=== PATIENT | female | born 1975 | race American Indian/Alaskan Native ===

== ENCOUNTER 2017-01-04 07:43 | Day surgery (SDC) | payer BC ==
--- NOTE | 2017-01-02 11:30 | Anesthesia Consultation ---
Anesthesia Consult and Med Hx Date of service: 01/02/17 (Scheduled for ESWL on 01/04/[address] Ford) - Airway Anesthetic Teeth Evaluation: Poor (Broken tooth #3, broken loose tooth #13) ROM Head & Neck: Adequate Mental/Hyoid Distance: Adequate Mallampati Class: Class III Intubation Access Assessment: Possibly Difficult - Pulmonary Exam CTA: Yes - Cardiac Exam Cardiac Exam: RRR - Pre-Operative Health Status ASA Pre-Surgery Classification: ASA2 Proposed Anesthetic Plan: General - Pre-Anesthesia Comment Pre-Anesthesia Comments: h/o PONV. s/p ESWL on 07/2015, LMA #5. s/p dental infection, ? abscess- on day 2 of Clindamycin. - Pulmonary Hx Smoking: Yes (2-6 CIGARETTES WEEKLY) Hx Asthma: No Hx Sleep Apnea: No - Cardiovascular System Hx Hypertension: Yes (Denies Chest pain) Hx Coronary Artery Disease: No - Central Nervous System Hx Seizures: No (Pt declines) CVA: No Hx Psychiatric Problems: Yes (Depression) - Gastrointestinal Hx Gastroesophageal Reflux Disease: No - Endocrine Hx Renal Disease: No Hx Non-Insulin Dependent Diabetes: Yes (On Metformin) Hx Thyroid Disease: No - Hematic Hx Anemia: Yes (In past, "RESOLVED") Hx Sickle Cell Disease: No - Other Systems Hx Alcohol Use: No Hx Substance Use: No Hx Cancer: No Hx Obesity: Yes (BMI=40)
[~2017-01-04 07:43] MED LIST: ANCEF/STERILE WATER 2 GM/20 ML IV NR; NACL 0.9% 1000 ML 1,000 ML IV SCH; PEPCID PO NR; TRANSDERM-SCOP TD NR; VERSED IV NR; ZOFRAN IV NR
[2017-01-04] MEDS ORDERED: ZOFRAN IV PRN (08:33)
--- NOTE | 2017-01-04 08:34 | Anesthesia Day of Surgery ---
Anesthesia Day of Surgery - Day of Surgery Patient Examined: Yes Patient H&P Reviewed: Yes Patient is NPO: Yes
[2017-01-04] MEDS ORDERED: NEO SYNEPHRINE/NS Syringe(OR USE) IV ONE (08:46)
[2017-01-04] MEDS ORDERED: XYLOCAINE MPF 2% ONE (08:57)
[2017-01-04] MEDS ORDERED: DIPRIVAN 10 MG/ML IV ONE (08:57)
[2017-01-04] MEDS ORDERED: SUBLIMAZE ONE (08:57)
[2017-01-04] MEDS ORDERED: ZOFRAN ONE (08:57)
[2017-01-04] MEDS ORDERED: DECADRON ONE (08:57)
[2017-01-04] MEDS ORDERED: ROBINUL ONE (08:58)
[2017-01-04] MEDS ORDERED: LACTATED RINGERS 1,000 ML IV SCH (09:00)
--- NOTE | 2017-01-04 09:23 | Post Operative Note ---
Date of procedure: 01/04/17 Pre-op diagnosis: renal stone Post-op diagnosis: same Findings: l stone Procedure: L eswl Anesthesia: SARAH Surgeon: KARYN MITCHELL Estimated blood loss: none Pathology: none Condition: stable Disposition: PACU
--- NOTE | 2017-01-04 09:24 | Discharge Summary ---
Short Stay Discharge Plan Activity: other (no straining ) Weight Bearing Status: Full Weight Bearing Diet: low fat, low cholesterol, low salt, diabetic Special Instructions: other (inc fluids ) Follow up with: MAMIE OLMSTEAD MD [Primary Care Provider] - 7 Days KARYN MITCHELL MD [Staff Physician] - 14 Days
--- NOTE | 2017-01-04 09:32 | Operative Report ---
PREOPERATIVE DIAGNOSES: Left flank pain and left renal stone. POSTOPERATIVE DIAGNOSES: Left flank pain and left renal stone. PROCEDURE: Left in situ lithotripsy. SURGEON: Av Ford MD ANESTHESIA: General. FINDINGS: This patient is a woman with left renal stone. All the risks and complications were discussed. It is a 9 mm stone well seen on x-ray. DESCRIPTION OF PROCEDURE: The patient was brought to the operating room and placed on the operating table. Following induction of anesthesia, placed over the F2 focal point without difficulty. Shocks were begun at 1 kV and increased to maximum of 6 kV. Renal pause was carried out. The patient tolerated the procedure well. There was appeared to be change in the density of the stone. She still has stone burden there and they need a staged procedure. The patient tolerated the procedure well and brought to recovery in stable condition. JOB# [id number] PRASANNA/MARCELO
--- NOTE | 2017-01-04 09:48 | Post Anesthesia Evaluation ---
- Post Anesthesia Evaluation Patient Participated: Yes Airway Patent: Yes Stable Respiratory Function: Yes Nausea/Vomiting: No Temp > 96.8F: Yes Pain Manageable: Yes Adequeate Hydration: Yes Anesthesia Complications: No Other Comments: Broken molar seen and retrieved on removal of LMA. Insertion was atraumatic. Patient has poor dentition.
[2017-01-04] MEDS: DILAUDID IV PRN ×2 (09:55→10:06)
[2017-01-04] MEDS ORDERED: PERCOCET 5/325 PO ONE (11:05)
[2017-01-04 11:30] VITALS: BP 117/75
== END 2017-01-04 11:40 | disposition home or self-care (01) ==
LOC: OR 07:43
PROVIDERS: ATTEND Urology
DX: N20.0 Calculus of kidney (principal); I10 Essential (primary) hypertension; E11.9 Type 2 diabetes mellitus without complications; F17.210 Nicotine dependence, cigarettes, uncomplicated; F32.9 Major depressive disorder, single episode, unspecified; E66.9 Obesity, unspecified; Z68.41 Body mass index [BMI] 40.0-44.9, adult; Z90.710 Acquired absence of both cervix and uterus; Z79.84 Long term (current) use of oral hypoglycemic drugs; Z83.3 Family history of diabetes mellitus; Z82.49 Family history of ischemic heart disease and other diseases of the circulatory system; Z80.42 Family history of malignant neoplasm of prostate; Z80.0 Family history of malignant neoplasm of digestive organs; Z80.8 Family history of malignant neoplasm of other organs or systems
CPT/HCPCS: 50590; 82962; J0690; J1100; J1170; J2250; J2370; J2405; J2704; J3010; J7030

== ENCOUNTER 2017-09-29 14:58 | Emergency (ER) | payer BC ==
[2017-09-29 15:18] VITALS: BP 124/59
[2017-09-29] MEDS ORDERED: BOOSTRIX IM ONE (17:18)
--- NOTE | 2017-09-29 17:25 | Emergency Department Report ---
ED Laceration HPI - HPI Chief Complaint: Wound/Laceration Stated Complaint: LACERATION LEFT INDEX FINGER Time Seen by Provider: 09/29/17 17:17 Occurred When: Today Location: Upper Extremity (base of 2nd finger R hand) Severity: mild Tetanus Status: Not up to Date Laceration Symptoms: Yes Pain, No Foreign Body Sensation, No Numbness, No Weakness Other History: Caught finger on piece of metal. ED Review of Systems ROS: Stated complaint: LACERATION LEFT INDEX FINGER Other details as noted in HPI Comment: All other systems reviewed and negative Constitutional: denies: chills, fever Eyes: denies: eye pain, eye discharge, vision change ENT: denies: ear pain, throat pain Respiratory: denies: cough, shortness of breath, wheezing Cardiovascular: denies: chest pain, palpitations Endocrine: no symptoms reported Gastrointestinal: denies: abdominal pain, nausea, diarrhea Genitourinary: denies: urgency, dysuria, discharge Musculoskeletal: denies: back pain, joint swelling, arthralgia Skin: denies: rash, lesions Neurological: denies: headache, weakness, paresthesias Psychiatric: denies: anxiety, depression Hematological/Lymphatic: denies: easy bleeding, easy bruising ED Past Medical Hx - Past Medical History Hx Hypertension: Yes Hx Diabetes: Yes (METFORMIN) Hx Renal Disease: No Hx Sickle Cell Disease: No Hx Seizures: No (Pt declines) Hx Kidney Stones: Yes Hx Asthma: No Hx HIV: No Additional medical history: high cholesterol - Surgical History Additional Surgical History: partial hysterectomykidney stones - Social History Smoking Status: Never Smoker Substance Use Type: None - Medications Home Medications: Home Medications Medication Instructions Recorded Confirmed Last Taken Type Lisinopril [Zestril TAB] 5 mg PO QDAY 09/22/14 01/04/17 01/04/17 History Pravastatin Sodium [Pravastatin] 10 mg PO QHS 09/22/14 01/01/17 09/21/14 History metFORMIN [Glucophage] 750 mg PO BID 09/22/14 01/04/17 01/03/17 History Sennosides/Docusate Sodium 1 each PO DAILY #10 tablet 07/05/15 01/04/17 Rx [Senna-Docusate Sodium Tablet] oxyCODONE [Roxicodone TAB] 5 mg PO Q4H PRN #30 tablet 07/26/15 01/04/17 Rx Pedi Multivit 22/Vit D3/Vit K 1 each PO DAILY 08/02/15 01/01/17 10/16/16 History [Multivitamins Chewable Tablet] Citalopram [celeXA] 20 mg PO QDAY 01/01/17 01/04/17 01/03/17 History Clindamycin [Clindamycin CAP] 150 mg PO BID 01/01/17 01/04/17 01/03/17 History Triamter/Hctz 37.5-25 mg 1 tab PO QDAY 01/01/17 01/04/17 01/03/17 History [Maxzide-25] Cephalexin [Keflex] 500 mg PO Q12HR #14 cap 09/29/17 Unknown Rx Laceration Physical Exam - Exam General: Vital signs noted. No distress. Alert and acting appropriately. Wound Length (cm): 1 Laceration Location: Upper Extremity (small superficial lac to base of R 2nd finger, palmar aspect) Laceration Exam: Yes Normal Distal CMS, No Foreign Body, No Exposed Tendon, Vessel, or Nerve (CMS, tendons intact), No Tendon Injury ED Course Vital Signs 09/29/17 15:15 Temperature 98 F Pulse Rate 71 Respiratory 16 Rate Blood Pressure 124/59 O2 Sat by Pulse 98 Oximetry - Reevaluation(s) Reevaluation #1: 09/29/17 17:23 Pt is in NAD and stable for d/c. - Laceration /Wound Repair Left Palm Hand Wound Location: upper extremity Wound Length (cm): 1 Wound's Depth, Shape: superficial Wound Explored: clean Irrigated w/ Saline (ccs): 100 Wound Repaired With: Dermabond Sterile Dressing Applied?: Yes Progress: Tolerated well. ED Medical Decision Making - Medical Decision Making Recommended placement of 1-2 sutures however patient refused. Though not the preferred treatment, patient wanted small lac to be glued. As it is superficial , glue applied and area immobilized. Follow with PCP. Tetanus updated. - Differential Diagnosis laceration Critical care attestation.: If time is entered above; I have spent that time in minutes in the direct care of this critically ill patient, excluding procedure time. ED Disposition Clinical Impression: Laceration of hand Qualifiers: Encounter type: initial encounter Foreign body presence: without foreign body Laterality: left Qualified Code(s): S61.412A - Laceration without foreign body of left hand, initial encounter Disposition: DC- TO HOME OR SELFCARE Is pt being admited?: No Condition: Good Instructions: Laceration (ED), Skin Adhesive Care (ED) Prescriptions: Cephalexin [Keflex] 500 mg PO Q12HR #14 cap Referrals: PRIMARY CARE,MD [Primary Care Provider] - 3-5 Days Time of Disposition: 17:24
== END 2017-09-29 17:45 | disposition home or self-care (01) ==
LOC: ED 14:58
DX: S61.211A Laceration without foreign body of left index finger without damage to nail, initial encounter (principal); I10 Essential (primary) hypertension; E11.9 Type 2 diabetes mellitus without complications; E78.00 Pure hypercholesterolemia, unspecified; W23.0XXA Caught, crushed, jammed, or pinched between moving objects, initial encounter; Y93.89 Activity, other specified; Y92.89 Other specified places as the place of occurrence of the external cause; Y99.8 Other external cause status
CPT/HCPCS: 90471; 90715; 99282

== ENCOUNTER 2019-07-15 06:31 | Day surgery (SDC) | payer BC, MEDICAID ==
[2019-07-15] MEDS ORDERED: NACL 0.9% 500 ML 500 ML ONE (06:42)
[2019-07-15] MEDS ORDERED: HALFPRIN EC PO ONE (06:55)
[2019-07-15] MEDS ORDERED: NACL 0.9% 500 ML 500 ML IV SCH (07:00)
[2019-07-15 07:26] LABS: Basophils # (Auto) 0.1 K/mm3 (0.0-0.1); Basophils % (Auto) 0.7 % (0.0-1.8); Eosinophils # (Auto) 0.2 K/mm3 (0.0-0.4); Eosinophils % (Auto) 2.1 % (0.0-4.3); Hematocrit 35.3 % (30.3-42.9); Hemoglobin 11.7 gm/dl (10.1-14.3); Lymphocytes # (Auto) 2.9 K/mm3 (1.2-5.4); Lymphocytes % (Auto) 29.2 % (13.4-35.0); Mean Corpuscular HGB Conc 33 % (30-34); Mean Corpuscular Volume 82 fl (79-97); Monocytes # (Auto) 0.6 K/mm3 (0.0-0.8); Monocytes % (Auto) 6.4 % (0.0-7.3); Platelet Count 290 K/mm3 (140-440); Red Cell Distribution Width 15.4 % (13.2-15.2)
[2019-07-15 07:38] LABS: BUN/Creatinine Ratio 14; Blood Urea Nitrogen 10 mg/dL (7-17); Calcium 8.6 mg/dL (8.4-10.2); Hemolysis Index 14
[2019-07-15 07:44] LABS: INR 1.03 (0.87-1.13)
[2019-07-15] MEDS ORDERED: ECOTRIN PO ONE (08:00)
[2019-07-15] MEDS ORDERED: CALAN ONE (08:58)
[2019-07-15] MEDS ORDERED: NITROGLYCERIN SYRINGE 3 ML ONE (08:58)
[2019-07-15] MEDS ORDERED: HEPARIN 10,000 UNITS/10 ML ONE (08:58)
[2019-07-15] MEDS ORDERED: HEPARIN/NS 5000 UNIT/500ML(CATH LAB) 1,000 ML IR ONE (08:58)
[2019-07-15] MEDS ORDERED: XYLOCAINE 2% INFILTRATI ONE (08:58)
[2019-07-15] MEDS ORDERED: VERSED ONE (08:58)
[2019-07-15] MEDS ORDERED: SUBLIMAZE ONE (08:59)
--- NOTE | 2019-07-15 10:22 | Cardiac Catherization Report ---
CARDIAC CATHETERIZATION REPORT REASON FOR PROCEDURE: Chest pain and abnormal stress test. PROCEDURES: 1. Left heart catheterization. 2. Selective left and right coronary angiography. 3. Left ventricle angiography. 4. Sedation time, start 0954, end 1007. The patient was prepped and draped in a sterile fashion after informed consent. The right radial cath site was prepped and draped after a negative Christiano's test. The right radial artery was entered using Seldinger technique followed by placement of a 6-Icelandic hydrophilic sheath. Routine radial cocktail was administered via the sheath. The left coronary angiography was performed using a #3.5 left Tai catheter. A #4 right Tai was used for right coronary angiography. The pigtail catheter was used for left ventricular angiography. Catheters were removed, sheath removed, and hemostasis achieved using manual compression. The patient was returned to the postprocedure unit in stable condition. There were no complications. FINDINGS: HEMODYNAMICS: Left ventricular end-diastolic pressure was 24, following coronary angiography. Ascending aortic pressure 140/80. There was no significant pressure gradient on pullback across the aortic valve. CORONARY ANGIOGRAPHY: The left main coronary artery was angiographically normal. The left anterior descending artery and its diagonal branches were angiographically normal. The circumflex artery was a large dominant vessel, similarly angiographically normal. The right coronary artery was small, nondominant, and also free of significant disease. Left ventricular systolic function was at the lower limits of normal, ejection fraction 50-55%, following an extrasystolic beat. CONCLUSION: 1. Angiographically normal coronary arteries. 2. Left circumflex dominant system. 3. Well preserved left ventricular systolic function, ejection fraction 50-55%. RECOMMENDATION: Risk factor modification and medical therapy. JOB# [id number] CA/NTS
[2019-07-15] MEDS ORDERED: NACL 0.9% 1000 ML 1,000 ML IV SCH (13:00)
--- NOTE | 2019-07-15 13:05 | Discharge Summary ---
Short Stay Discharge Plan Activity: advance as tolerated Weight Bearing Status: Full Weight Bearing Diet: low fat, low cholesterol, low salt Wound: keep clean and dry Special Instructions: no heavy lifting (3 days), hold Metformin (48 hours only) Follow up with: CHRIS CORTEZ MD [Primary Care Provider] - 7 Days TOM ROBINS MD [Staff Physician] - 7 Days Forms: [employer] PCI D/C Instructions
[2019-07-15 15:44] VITALS: BP 139/92
== END 2019-07-15 14:40 | disposition home or self-care (01) ==
LOC: CATHLABREC 06:31
PROVIDERS: ATTEND Internal Medicine Cardiovascular Disease
DX: R07.89 Other chest pain (principal); R94.39 Abnormal result of other cardiovascular function study; I10 Essential (primary) hypertension; E13.9 Other specified diabetes mellitus without complications; E66.9 Obesity, unspecified; F32.9 Major depressive disorder, single episode, unspecified; Z79.899 Other long term (current) drug therapy; Z87.891 Personal history of nicotine dependence; Z98.890 Other specified postprocedural states; Z87.442 Personal history of urinary calculi; Z90.49 Acquired absence of other specified parts of digestive tract; Z68.42 Body mass index [BMI] 45.0-49.9, adult; Z90.710 Acquired absence of both cervix and uterus; Z87.440 Personal history of urinary (tract) infections; Z79.84 Long term (current) use of oral hypoglycemic drugs
CPT/HCPCS: 36415; 80048; 85025; 85610; 85730; 93005; 93010; 93458; 99156; C1894; J1644; J2250; J3010; J7040; Q9967

== ENCOUNTER 2019-07-20 00:37 | Emergency (ER) | payer MEDICAID ==
[2019-07-20 00:50] VITALS: BP 146/77
[2019-07-20] MEDS ORDERED: IBUPROFEN PO ONE (02:19)
[2019-07-20] MEDS ORDERED: BACTRIM DS PO ONE (02:19)
[2019-07-20] MEDS ORDERED: NORCO 5/325 PO ONE (02:19)
[2019-07-20] MEDS ORDERED: ZOFRAN ODT PO ONE (02:19)
[2019-07-20] MEDS ORDERED: XYLOCAINE 1% MPF 5 mL INFILTRATI ONE (02:19)
--- NOTE | 2019-07-20 03:37 | Emergency Department Report ---
ED Extremity Problem HPI - General Chief complaint: Extremity Injury, Upper Stated complaint: INFECTION ON PRONTER FINGER Source: patient Mode of arrival: Ambulatory Limitations: No Limitations - History of Present Illness Initial comments: Patient is a 44-year-old -[place] female with a history of hypertension and ltw-grhfysp-xjnjewfoj diabetes presents to the ED with complaint of acute onset persistent painful swollen erythematous fluctuant left index finger rash after she moved a cuticle from left index fingernail one week ago. Patient states that in the last 2 days the pain has been persistent and worse such that she is unable to perform any range of motion with the left index finger. Patient denies fever, chills, nausea, vomiting, numbness and tingling of her left arm or left index finger, traumatic injury or insect bite. MD Complaint: extremity pain (left index finger pain and swelling), extremity swelling (left index finger), joint swelling (left index finger) -: Sudden, week(s) (1) Location: left, upper extremity (index finger ) History of Same: No -: No fever, No associated dyspnea Severity scale (0 -10): 7 Quality: aching, sharp, constant Consistency: constant Worsens with: weight bearing, exertion, palpation Associated Symptoms: denies other symptoms - Related Data Home Medications Medication Instructions Recorded Confirmed Last Taken Lisinopril [Zestril TAB] 20 mg PO QDAY 09/22/14 07/15/19 07/13/19 20mg Lasix TAB 20 mg PO DAILY 07/15/19 07/15/19 07/13/19 20mg Previous Rx's Medication Instructions Recorded Last Taken Type Acetaminophen/Codeine [Tylenol 1 tab PO Q6H PRN #12 tab 07/20/19 Unknown Rx /Codeine # 3 tab] Ibuprofen [Motrin] 800 mg PO Q8HR PRN #24 tablet 07/20/19 Unknown Rx Sulfamethoxazole/Trimethoprim 1 each PO Q12H #20 tablet 07/20/19 Unknown Rx [Bactrim DS TAB] Allergies Allergy/AdvReac Type Severity Reaction Status Date / Time No Known Allergies Allergy Verified 09/29/17 15:15 ED Review of Systems ROS: Stated complaint: INFECTION ON PRONTER FINGER Other details as noted in HPI Constitutional: denies: chills, fever Eyes: denies: eye pain, eye discharge, vision change ENT: denies: ear pain, throat pain Respiratory: denies: cough, shortness of breath, wheezing Cardiovascular: denies: chest pain, palpitations Endocrine: no symptoms reported Gastrointestinal: denies: abdominal pain, nausea, diarrhea Genitourinary: denies: urgency, dysuria, discharge Musculoskeletal: joint swelling (left index finger), arthralgia (left index finger). denies: back pain Skin: rash (erythematous maculopapular painful rash on left index finger), change in color. denies: lesions Neurological: denies: headache, weakness, paresthesias Psychiatric: denies: anxiety, depression Hematological/Lymphatic: denies: easy bleeding, easy bruising ED Past Medical Hx - Past Medical History Previous Medical History?: Yes Hx Hypertension: Yes Hx Diabetes: Yes Hx Renal Disease: No Hx Sickle Cell Disease: No Hx Seizures: No (Pt declines) Hx Kidney Stones: Yes (lithrotripsy) Hx Asthma: No Hx HIV: No Additional medical history: high cholesterol, Cardiac Cath 2018 - Surgical History Hx Cholecystectomy: Yes Additional Surgical History: partial hysterectomykidney stones - Social History Smoking Status: Never Smoker - Medications Home Medications: Home Medications Medication Instructions Recorded Confirmed Last Taken Type Lisinopril [Zestril TAB] 20 mg PO QDAY 09/22/14 07/15/19 07/13/19 History 20mg Lasix TAB 20 mg PO DAILY 07/15/19 07/15/19 07/13/19 History 20mg Acetaminophen/Codeine [Tylenol 1 tab PO Q6H PRN #12 tab 07/20/19 Unknown Rx /Codeine # 3 tab] Ibuprofen [Motrin] 800 mg PO Q8HR PRN #24 tablet 07/20/19 Unknown Rx Sulfamethoxazole/Trimethoprim 1 each PO Q12H #20 tablet 07/20/19 Unknown Rx [Bactrim DS TAB] ED Physical Exam - General Limitations: No Limitations General appearance: alert, in no apparent distress - Head Head exam: Present: atraumatic, normocephalic, normal inspection - Eye Eye exam: Present: normal appearance, PERRL, EOMI Pupils: Present: normal accommodation - ENT ENT exam: Present: normal exam, normal orophraynx, mucous membranes moist, TM's normal bilaterally, normal external ear exam - Neck Neck exam: Present: normal inspection, full ROM. Absent: tenderness - Respiratory Respiratory exam: Present: normal lung sounds bilaterally. Absent: respiratory distress, wheezes, stridor, chest wall tenderness, accessory muscle use, prolonged expiratory - Cardiovascular Cardiovascular Exam: Present: regular rate, normal rhythm, normal heart sounds. Absent: systolic murmur, diastolic murmur, rubs, gallop - GI/Abdominal GI/Abdominal exam: Present: soft, normal bowel sounds. Absent: tenderness, guarding, rebound, hyperactive bowel sounds, hypoactive bowel sounds, organomegaly - Rectal Rectal exam: Present: deferred - Extremities Exam Extremities exam: Present: normal inspection, tenderness (palpable left index finger tenderness due to swollen erythematous maculopapular fluctuant rash on distal left index finger), normal capillary refill, joint swelling (left index finger). Absent: calf tenderness - Back Exam Back exam: Present: normal inspection, full ROM. Absent: tenderness, CVA tenderness (R), CVA tenderness (L), muscle spasm, paraspinal tenderness - Neurological Exam Neurological exam: Present: alert, oriented X3, CN II-XII intact, normal gait, reflexes normal - Psychiatric Psychiatric exam: Present: normal affect, normal mood - Skin Skin exam: Present: warm, dry, intact, normal color, rash (swollen erythematous maculopapular tender fluctuant rash on distal left index finger), erythema ED Course Vital Signs 07/20/19 07/20/19 07/20/19 00:46 02:30 02:32 Temperature 98.2 F Pulse Rate 79 Respiratory 18 16 16 Rate Blood Pressure 146/77 O2 Sat by Pulse 98 Oximetry - Reevaluation(s) Reevaluation #1: 07/20/19 04:06 This is a 44-year-old [place] female who presented to the ED with distal left index finger swollen and erythematous macular rash with fluctuance. In the ED, patient is alert and oriented 3 and is not in distress. Patient was treated for pain and the left index finger rash was cleaned thoroughly and local anesthetic applied to anesthetize the left index finger prior to the I&D procedure. Patient tolerated the procedure well and the wound was dressed appropriately and patient discharged home on antibiotics and pain medications. Patient is advised to return to the ED immediately if symptoms get worse, otherwise with her primary care physician in 7-10 days for reevaluation. - I & D Left Distal Finger Type of Procedure: Simple Site: Distal left index finger Blade Size: 11 I & D Procedure: betadine prep, sterile drapes applied, sterile dressing applied, gauze wick placed Progress: Patient tolerated the procedure well. The wound was dressed appropriately and the patient discharged home on pain medications and oral antibiotics. ED Medical Decision Making - Medical Decision Making This is a 44-year-old [place] female who presented to the ED with distal left index finger swollen and erythematous macular rash with fluctuance. In the ED, patient is alert and oriented 3 and is not in distress. Patient was treated for pain and the left index finger rash was cleaned thoroughly and local anesthetic applied to anesthetize the left index finger prior to the I&D procedure. Patient tolerated the procedure well and the wound was dressed appropriately and patient discharged home on antibiotics and pain medications. Patient is advised to return to the ED immediately if symptoms get worse, otherwise with her primary care physician in 7-10 days for reevaluation. - Differential Diagnosis cellulitis of finger; paronychia of left index finger; folliculitis Critical care attestation.: If time is entered above; I have spent that time in minutes in the direct care of this critically ill patient, excluding procedure time. ED Disposition Clinical Impression: Cellulitis of left index finger, Paronychia of left index finger Disposition: DC- TO HOME OR SELFCARE Is pt being admited?: No Does the pt Need Aspirin: No Condition: Stable Instructions: Paronychia (ED), Cellulitis (ED) Additional Instructions: Take medications Coumadin fluids and follow up with your primary care physician in 7-10 days for reevaluation. Remove the dressing from the wound in 2 days, and wash with soap and water, pad to dry and dress it with gauze or with a Band- Aid. Return to the ED immediately if symptoms get worse Prescriptions: Sulfamethoxazole/Trimethoprim [Bactrim DS TAB] 1 each PO Q12H #20 tablet Ibuprofen [Motrin] 800 mg PO Q8HR PRN #24 tablet PRN Reason: Pain , Severe (7-10) Acetaminophen/Codeine [Tylenol /Codeine # 3 tab] 1 tab PO Q6H PRN #12 tab PRN Reason: Pain , Severe (7-10) Referrals: PRIMARY CARE,MD [Primary Care Provider] - 3-5 Days Forms: Work/School Release Form(ED) Time of Disposition: 03:42 Print Language: FRENCH
== END 2019-07-20 03:50 | disposition home or self-care (01) ==
LOC: ED 00:37
DX: L03.012 Cellulitis of left finger (principal); I10 Essential (primary) hypertension; E11.9 Type 2 diabetes mellitus without complications; E78.00 Pure hypercholesterolemia, unspecified; Z90.710 Acquired absence of both cervix and uterus; Z79.899 Other long term (current) drug therapy
CPT/HCPCS: 99282; Q0162

== ENCOUNTER 2019-07-23 21:49 | Emergency (ER) | payer MEDICAID ==
[2019-07-23 22:24] VITALS: BP 131/85
[2019-07-24] MEDS ORDERED: PERCOCET 5/325 PO ONE (00:31)
[2019-07-24] MEDS ORDERED: ZOFRAN ODT PO ONE (00:31)
--- NOTE | 2019-07-24 00:38 | Emergency Department Report ---
- General Chief Complaint: Extremity Injury, Upper Stated Complaint: PACKING IN FINGER CAUSING PAIN AND BLEEDING Time Seen by Provider: 07/23/19 22:22 Source: patient Mode of arrival: Ambulatory Limitations: No Limitations - History of Present Illness Initial Comments: Patient is a 44-year-old -[place] female with a history of xzd-jwjhiun-fzbedoqot diabetes and hypertension who presents to the ED with worsening distal left index finger paronychia wound that was incised and drained 2 days ago. Patient states that she was trying to remove the packing that was placed in the wound when she could not longer bear the pain. Patient denies nausea, vomiting, numbness and tingling of the left index finger or left hand. Patient stated that she continue to take the previously prescribed antibiotics and pain medications but states that the last time she took pain medicine was over 12 hours ago. Patient denies dizziness, fever, chills, headache, cough, chest pain or shortness of breath. -: Sudden, days(s) (2) Location: other (left index finger) Extremity Location: Left: Hand (left index finger paronychion wound) Place: home Patient Tetanus UTD: Yes Associated Symptoms: pain. denies: loss of feeling/numbness, suspect foreign body present, unable to move injured part, weakness followed by dizziness, nausea/vomiting, fever - Related Data Home Medications Medication Instructions Recorded Confirmed Last Taken Lisinopril [Zestril TAB] 20 mg PO QDAY 09/22/14 07/15/19 07/13/19 20mg Lasix TAB 20 mg PO DAILY 07/15/19 07/15/19 07/13/19 20mg Previous Rx's Medication Instructions Recorded Last Taken Type Acetaminophen/Codeine [Tylenol 1 tab PO Q6H PRN #12 tab 07/20/19 Unknown Rx /Codeine # 3 tab] Ibuprofen [Motrin] 800 mg PO Q8HR PRN #24 tablet 07/20/19 Unknown Rx Sulfamethoxazole/Trimethoprim 1 each PO Q12H #20 tablet 07/20/19 Unknown Rx [Bactrim DS TAB] Allergies Allergy/AdvReac Type Severity Reaction Status Date / Time No Known Allergies Allergy Verified 09/29/17 15:15 ED Review of Systems ROS: Stated complaint: PACKING IN FINGER CAUSING PAIN AND BLEEDING Other details as noted in HPI Constitutional: denies: chills, fever Eyes: denies: eye pain, eye discharge, vision change ENT: denies: ear pain, throat pain Respiratory: denies: cough, shortness of breath, wheezing Cardiovascular: denies: chest pain, palpitations Endocrine: no symptoms reported Gastrointestinal: denies: abdominal pain, nausea, diarrhea Genitourinary: denies: urgency, dysuria, discharge Musculoskeletal: arthralgia (distal left index finger wound). denies: back pain, joint swelling Skin: other (Open distal left index finger wound). denies: rash, lesions Neurological: denies: headache, weakness, paresthesias Psychiatric: denies: anxiety, depression Hematological/Lymphatic: denies: easy bleeding, easy bruising ED Past Medical Hx - Past Medical History Previous Medical History?: Yes Hx Hypertension: Yes Hx Diabetes: Yes Hx Renal Disease: No Hx Sickle Cell Disease: No Hx Seizures: (Pt declines) Hx Kidney Stones: Yes (lithrotripsy) Hx Asthma: No Hx HIV: No Additional medical history: high cholesterol, Cardiac Cath 2018 - Surgical History Past Surgical History?: Yes Hx Cholecystectomy: Yes Additional Surgical History: partial hysterectomykidney stones - Social History Smoking Status: Never Smoker Substance Use Type: None - Medications Home Medications: Home Medications Medication Instructions Recorded Confirmed Last Taken Type Lisinopril [Zestril TAB] 20 mg PO QDAY 09/22/14 07/15/19 07/13/19 History 20mg Lasix TAB 20 mg PO DAILY 07/15/19 07/15/19 07/13/19 History 20mg Acetaminophen/Codeine [Tylenol 1 tab PO Q6H PRN #12 tab 07/20/19 Unknown Rx /Codeine # 3 tab] Ibuprofen [Motrin] 800 mg PO Q8HR PRN #24 tablet 07/20/19 Unknown Rx Sulfamethoxazole/Trimethoprim 1 each PO Q12H #20 tablet 07/20/19 Unknown Rx [Bactrim DS TAB] ED Physical Exam - General Limitations: No Limitations General appearance: alert, in no apparent distress - Head Head exam: Present: atraumatic, normocephalic, normal inspection - Eye Eye exam: Present: normal appearance, PERRL, EOMI Pupils: Present: normal accommodation - ENT ENT exam: Present: normal exam, normal orophraynx, mucous membranes moist, TM's normal bilaterally, normal external ear exam - Neck Neck exam: Present: normal inspection, full ROM - Respiratory Respiratory exam: Present: normal lung sounds bilaterally. Absent: respiratory distress, wheezes, rhonchi, accessory muscle use - Cardiovascular Cardiovascular Exam: Present: regular rate, normal rhythm, normal heart sounds. Absent: systolic murmur, diastolic murmur, rubs, gallop - GI/Abdominal GI/Abdominal exam: Present: soft, normal bowel sounds. Absent: tenderness, guarding, rebound, mass - Extremities Exam Extremities exam: Present: normal inspection, full ROM, tenderness (palpable distal left index finger tenderness due to an open paronychion wound), normal capillary refill - Back Exam Back exam: Present: normal inspection, full ROM. Absent: muscle spasm - Neurological Exam Neurological exam: Present: alert, oriented X3 - Psychiatric Psychiatric exam: Present: normal affect, normal mood - Skin Skin exam: Present: warm, dry, intact, normal color, other (Open severely tender paronychion wound on distal left index finger). Absent: rash ED Course Vital Signs 07/23/19 22:22 Temperature 98.1 F Pulse Rate 75 Respiratory 18 Rate Blood Pressure 131/85 O2 Sat by Pulse 98 Oximetry - Reevaluation(s) Reevaluation #1: 07/24/19 00:37 This is a 44-year-old female who presented to the ED for left index finger paronychia opened wound recheck after incision and drainage performed 2 days ago. Patient states that the pain has worsened especially when she tried to remove the packing herself. Patient states that she has not taken pain medications for over 12 hours but admits to taking antibiotic as previously prescribed. In the ED, patient is alert and oriented 3 and is not in distress but appears to be in severe pain. Patient was treated for pain and the packing was removed successfully and the wound dressed appropriately. The patient is advised to continue taking her previously prescribed medications at home to completion. The patient was advised to follow-up with her primary care physician in 7-10 days for reevaluation. Patient was otherwise advised to return to the ED immediately if symptoms get worse. ED Medical Decision Making - Medical Decision Making This is a 44-year-old female who presented to the ED for left index finger paronychia opened wound recheck after incision and drainage performed 2 days ago. Patient states that the pain has worsened especially when she tried to remove the packing herself. Patient states that she has not taken pain medications for over 12 hours but admits to taking antibiotic as previously prescribed. In the ED, patient is alert and oriented 3 and is not in distress but appears to be in severe pain. Patient was treated for pain and the packing was removed successfully and the wound dressed appropriately. The patient is advised to continue taking her previously prescribed medications at home to completion. The patient was advised to follow-up with her primary care physician in 7-10 days for reevaluation. Patient was otherwise advised to return to the ED immediately if symptoms get worse. - Differential Diagnosis Paronychia of left index finger; cellulitis; Packing removal; wound check Critical care attestation.: If time is entered above; I have spent that time in minutes in the direct care of this critically ill patient, excluding procedure time. ED Disposition Clinical Impression: Paronychia of left index finger, Cellulitis of left index finger, Abscess packing removal Disposition: TO HOME OR SELFCARE Is pt being admited?: No Does the pt Need Aspirin: No Condition: Stable Instructions: Cellulitis (ED), Paronychia (ED) Additional Instructions: Continue taking her previously prescribed medications to completion especially the antibiotics. Follow up with your primary care physician in 7-10 days for reevaluation. Return to the ED immediately if symptoms get worse. Referrals: PRIMARY CARE, [Primary Care Provider] - 3-5 Days Forms: Work/School Release Form(ED) Time of Disposition: 00:41 Print Language: SLOVAK
== END 2019-07-24 01:15 | disposition home or self-care (01) ==
LOC: ED 21:49
DX: L03.012 Cellulitis of left finger (principal); I10 Essential (primary) hypertension; E11.9 Type 2 diabetes mellitus without complications; E78.00 Pure hypercholesterolemia, unspecified; Z79.4 Long term (current) use of insulin; Z79.1 Long term (current) use of non-steroidal anti-inflammatories (NSAID); Z79.899 Other long term (current) drug therapy; Z87.442 Personal history of urinary calculi; Z90.49 Acquired absence of other specified parts of digestive tract; Z90.711 Acquired absence of uterus with remaining cervical stump
CPT/HCPCS: 99282; Q0162

== ENCOUNTER 2019-10-26 16:41 | Emergency (ER) | payer MEDICAID ==
[2019-10-26] MEDS ORDERED: SODIUM CHLORIDE 0.9% 1000 ML 1,000 ML IV ONE (20:03)
--- NOTE | 2019-10-26 20:04 | Emergency Department Report ---
ED General Adult HPI - General Chief complaint: Hyperglycemia Stated complaint: HIGH GLUCOSE/ABD PAIN Time Seen by Provider: 10/26/19 19:41 Source: patient Mode of arrival: Ambulatory Limitations: No Limitations - History of Present Illness Initial comments: Patient is a 44-year-old female that presents emergency room for multiple complaints. Patient initially presented for headache, blurry vision, dizziness for 3 days. Patient states her symptoms are better with rest and worse with exertion. Patient states her headache is a 4 out of 10. Patient states her sugars been extremely high lately. Patient states she also had increased thirst and increased urination. Patient denies dysuria. Patient states she's had chronic abdominal pain for multiple months. Patient states she had a CT scan of her abdomen 2 days ago. Patient states that she doesn't developed chest pain hour ago. Patient states her chest pain is a 5 out of 10. Patient states is worse with movement and better with rest. He states her chest pain is also worse with palpation. Patient states she had a catheterization done July 2019 and was normal. Patient states she saw her primary care 4 days ago. And he had a sulfonylurea and increased her metformin for diabetes -: Sudden - Related Data Home Medications Medication Instructions Recorded Confirmed Last Taken Lisinopril [Zestril TAB] 20 mg PO QDAY 09/22/14 07/15/19 07/13/19 20 mg Lasix TAB 20 mg PO DAILY 07/15/19 07/15/19 07/13/19 20 mg Previous Rx's Medication Instructions Recorded Last Taken Type Acetaminophen/Codeine [Tylenol 1 tab PO Q6H PRN #12 tab 07/20/19 Unknown Rx /Codeine # 3 tab] Ibuprofen [Motrin] 800 mg PO Q8HR PRN #24 tablet 07/20/19 Unknown Rx Sulfamethoxazole/Trimethoprim 1 each PO Q12H #20 tablet 07/20/19 Unknown Rx [Bactrim DS TAB] Allergies Allergy/AdvReac Type Severity Reaction Status Date / Time No Known Allergies Allergy Verified 10/26/19 16:49 ED Review of Systems ROS: Stated complaint: HIGH GLUCOSE/ABD PAIN Other details as noted in HPI Constitutional: denies: chills, fever Eyes: vision change. denies: eye pain, eye discharge ENT: denies: ear pain, throat pain Respiratory: denies: cough, shortness of breath, wheezing Cardiovascular: chest pain. denies: palpitations Endocrine: no symptoms reported, increased thirst, increased urine Gastrointestinal: abdominal pain. denies: nausea, diarrhea Genitourinary: frequency. denies: dysuria, discharge Musculoskeletal: denies: back pain, joint swelling, arthralgia Skin: denies: rash, lesions Neurological: headache, vertigo. denies: weakness, paresthesias Psychiatric: denies: anxiety, depression Hematological/Lymphatic: denies: easy bleeding, easy bruising ED Past Medical Hx - Past Medical History Previous Medical History?: Yes Hx Hypertension: Yes Hx Diabetes: Yes Hx Renal Disease: No Hx Sickle Cell Disease: No Hx Seizures: (Pt declines) Hx Kidney Stones: Yes (lithrotripsy) Hx Asthma: No Hx HIV: No Additional medical history: high cholesterol, Cardiac Cath 2018 - Surgical History Past Surgical History?: Yes Hx Cholecystectomy: Yes Additional Surgical History: partial hysterectomykidney stones - Family History Family history: no significant - Social History Smoking Status: Never Smoker Substance Use Type: None - Medications Home Medications: Home Medications Medication Instructions Recorded Confirmed Last Taken Type Lisinopril [Zestril TAB] 20 mg PO QDAY 09/22/14 07/15/19 07/13/19 History 20 mg Lasix TAB 20 mg PO DAILY 07/15/19 07/15/19 07/13/19 History 20 mg Acetaminophen/Codeine [Tylenol 1 tab PO Q6H PRN #12 tab 07/20/19 Unknown Rx /Codeine # 3 tab] Ibuprofen [Motrin] 800 mg PO Q8HR PRN #24 tablet 07/20/19 Unknown Rx Sulfamethoxazole/Trimethoprim 1 each PO Q12H #20 tablet 07/20/19 Unknown Rx [Bactrim DS TAB] ED Physical Exam - General Limitations: No Limitations General appearance: alert, in no apparent distress - Head Head exam: Present: atraumatic, normocephalic - Eye Eye exam: Present: normal appearance - ENT ENT exam: Present: mucous membranes moist - Neck Neck exam: Present: normal inspection - Respiratory Respiratory exam: Present: normal lung sounds bilaterally, chest wall tenderness. Absent: respiratory distress, wheezes, rales - Cardiovascular Cardiovascular Exam: Present: regular rate, normal rhythm. Absent: systolic murmur, diastolic murmur, rubs, gallop - GI/Abdominal GI/Abdominal exam: Present: soft, normal bowel sounds. Absent: distended, tenderness, guarding - Rectal Rectal exam: Present: deferred - Extremities Exam Extremities exam: Present: normal inspection - Back Exam Back exam: Present: normal inspection - Neurological Exam Neurological exam: Present: alert, oriented X3 - Psychiatric Psychiatric exam: Present: normal affect, normal mood - Skin Skin exam: Present: warm, dry, intact, normal color. Absent: rash ED Course Vital Signs 10/26/19 17:37 Temperature 98.4 F Pulse Rate 90 Respiratory 18 Rate Blood Pressure 137/77 O2 Sat by Pulse 98 Oximetry - Reevaluation(s) Reevaluation #1: Patient states she is pain-free. Patient states her chest pain or headache has resolved. Patient states her blurred vision and dizziness have resolved. Patient is stable for discharge. Patient will be discharged home. I discussed plan of care with patient. patient agrees with plan of care. Patient given discharge instructions. Patient voiced understanding of discharge instructions. 10/26/19 22:47 ED Medical Decision Making - Lab Data Result diagrams: 10/26/19 20:10 10/26/19 20:10 - EKG Data -: EKG Interpreted by Me EKG shows normal: sinus rhythm, axis, intervals, QRS complexes, ST-T waves Rate: normal - Radiology Data Radiology results: report reviewed interpreted by me: no acute findings on chest x-ray. - Medical Decision Making Patient is a 44-year-old female that presents emergency room with complaints of chest pain, chronic abdominal pain, hyperglycemia and headache and dizziness. Patient's headache and blurry vision is most likely secondary to her elevated blood sugars and ycn-cu-dualide diabetes. Patient's head CT is negative. Patient's chest x-ray negative for patient EKG does not show any acute findings. Patient's labs unremarkable. Patient instructed to increase water and improve her diet. Patient also instructed to increase her glipizide to 3 times a day. Patient is stable for discharge. Patient discharged home. - Differential Diagnosis chronic abdominal pain, chest pain, chest wall pain., Headache, dizziness Critical care attestation.: If time is entered above; I have spent that time in minutes in the direct care of this critically ill patient, excluding procedure time. ED Disposition Clinical Impression: Hyperglycemia, Dizziness, Chronic abdominal pain, Acute chest wall pain Headache Qualifiers: Headache type: unspecified Headache chronicity pattern: acute headache Intractability: not intractable Qualified Code(s): R51 - Headache Chest pain Qualifiers: Chest pain type: unspecified Qualified Code(s): R07.9 - Chest pain, unspecified Diabetes Qualifiers: Diabetes mellitus type: type 2 Diabetes mellitus longterm insulin use: without longterm use Diabetes mellitus complication status: with other specified complication Qualified Code(s): E11.69 - Type 2 diabetes mellitus with other specified complication Disposition: TO HOME OR SELFCARE Is pt being admited?: No Does the pt Need Aspirin: No Condition: Stable Instructions: Chest Pain (ED), Diabetes Mellitus Type 2 in Adults (ED), Costochondritis (ED) Additional Instructions: Patient to take Tylenol or ibuprofen when necessary for pain. Patient to follow up with primary care in 2-3 days. Patient to follow up with pot puller in 2-3 days. Patient to return to ER if condition worsens. Patient to increase glipizide 5 mg to 3 times a day. Patient to increase water. Patient to rest. Patient to eat a diabetic and a low-salt diet and to reduce calorie intake. Referrals: PRIMARY CARE, [Primary Care Provider] - 2-3 Days Time of Disposition: 22:51
[2019-10-26 20:40] LABS: Basophils # (Auto) 0.1 K/mm3 (0.0-0.1); Basophils % (Auto) 0.7 % (0.0-1.8); Eosinophils # (Auto) 0.2 K/mm3 (0.0-0.4); Eosinophils % (Auto) 1.9 % (0.0-4.3); Hematocrit 42.5 % (30.3-42.9); Hemoglobin 13.6 gm/dl (10.1-14.3); Lymphocytes # (Auto) 4.3 K/mm3 (1.2-5.4); Lymphocytes % (Auto) 34.8 % (13.4-35.0); Mean Corpuscular HGB Conc 32 % (30-34); Mean Corpuscular Volume 81 fl (79-97); Monocytes # (Auto) 0.7 K/mm3 (0.0-0.8); Monocytes % (Auto) 5.8 % (0.0-7.3); Platelet Count 309 K/mm3 (140-440); Red Blood Count 5.26 M/mm3 (3.65-5.03); Red Cell Distribution Width 14.7 % (13.2-15.2)
[2019-10-26 20:56] LABS: Creatine Kinase MB 1.7 ng/mL (0.0-4.0)
[2019-10-26 20:58] LABS: Alanine Aminotransferase 24 units/L (7-56); Albumin 4.1 g/dL (3.9-5); BUN/Creatinine Ratio 15; Blood Urea Nitrogen 12 mg/dL (7-17); Calcium 9.5 mg/dL (8.4-10.2); Hemolysis Index 23
--- NOTE | 2019-10-26 20:58 | XRay Report ---
CHEST 2 VIEWS INDICATION / CLINICAL INFORMATION: Lightheadedness/Dizziness. COMPARISON: None available. FINDINGS: SUPPORT DEVICES: None. HEART / MEDIASTINUM: No significant abnormality. LUNGS / PLEURA: No significant pulmonary or pleural abnormality. No pneumothorax. ADDITIONAL FINDINGS: No significant additional findings. IMPRESSION: 1. No acute findings. Signer Name: Benito Willson MD Signed: 10/26/2019 8:53 PM Workstation Name: [id number]
--- NOTE | 2019-10-26 21:47 | Cat Scan Report ---
CT HEAD WITHOUT CONTRAST INDICATION / CLINICAL INFORMATION: Lightheadedness/Dizziness. TECHNIQUE: All CT scans at this location are performed using CT dose reduction for ALARA by means of automated e xposure control. COMPARISON: CT dated 07/23/15 FINDINGS: HEMORRHAGE: None. EXTRA-AXIAL SPACES: Normal in size and morphology for the patient's age. VENTRICULAR SYSTEM: Normal in size and morphology for the patient's age. CEREBRAL PARENCHYMA: No significant abnormality. No acute territorial infarct. MIDLINE SHIFT OR HERNIATION: None. CEREBELLUM / BRAINSTEM: No significant abnormality. ORBITS: Normal as visualized. SOFT TISSUES of HEAD: No significant abnormality. CALVARIUM: No significant abnormality. PARANASAL SINUSES / MASTOID AIR CELLS: Normal as visualized. ADDITIONAL FINDINGS: None. IMPRESSION: 1. No acute intracranial abnormality. No significant change. Signer Name: Benito Willson MD Signed: 10/26/2019 9:42 PM Workstation Name: [id number]
[2019-10-26] MEDS ORDERED: ASPIRIN 325 MG TAB PO ONE (21:52)
[2019-10-26 21:53] LABS: Bacteria,Urine 1+ /HPF (Negative); Bilirubin,Urine NEG (Negative); Blood,Urine NEG (Negative); Color,Urine Yellow (Yellow); Mucus,Urine FEW /HPF; Protein,Urine <15 mg/dL mg/dL (Negative); Urobilinogen,Urine < 2.0 mg/dL (<2.0)
[2019-10-26 23:12] VITALS: BP 132/84
== END 2019-10-26 23:12 | disposition home or self-care (01) ==
LOC: ED 16:41
DX: E11.65 Type 2 diabetes mellitus with hyperglycemia (principal); R10.9 Unspecified abdominal pain; R07.89 Other chest pain; I10 Essential (primary) hypertension; N20.0 Calculus of kidney; Z90.710 Acquired absence of both cervix and uterus; Z79.1 Long term (current) use of non-steroidal anti-inflammatories (NSAID); Z79.899 Other long term (current) drug therapy
CPT/HCPCS: 36415; 70450; 71046; 80053; 81001; 82550; 82553; 82962; 84484; 85025; 93005; 93010; 96360; 99285; J7030; 96361

== ENCOUNTER 2020-01-14 18:15 | Emergency (ER) | payer SELFPAY ==
[2020-01-14] MEDS ORDERED: KETOROLAC 30 MG/1 ML INJ IM ONE (23:47)
[2020-01-14] MEDS ORDERED: dexAMETHasone 20 MG/5 ML VIAL IM ONE (23:47)
--- NOTE | 2020-01-15 00:51 | XRay Report ---
Lumbosacral spine, 2 views INDICATION: Back pain FINDINGS: The vertebral body heights are intact with no compression fracture seen. The disc spaces ar e maintained except for moderate to severe narrowing at L5-S1 with minimal spurring. There is no spon dylolisthesis or significant facet arthropathy. No bone lesions are seen. No significant abnormality. Signer Name: Flavio Watkins MD Signed: 01/15/2020 12:47 AM Workstation Name: [id number]
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
[2020-01-15 01:31] VITALS: BP 120/69
== END 2020-01-15 01:31 | disposition home or self-care (01) ==
LOC: ED 18:15
DX: S16.1XXA Strain of muscle, fascia and tendon at neck level, initial encounter (principal); S39.012A Strain of muscle, fascia and tendon of lower back, initial encounter; E11.9 Type 2 diabetes mellitus without complications; E78.00 Pure hypercholesterolemia, unspecified; I10 Essential (primary) hypertension; Z87.442 Personal history of urinary calculi; Z90.49 Acquired absence of other specified parts of digestive tract; Z98.890 Other specified postprocedural states; Z90.710 Acquired absence of both cervix and uterus; Z79.899 Other long term (current) drug therapy; V49.69XA Unspecified car occupant injured in collision with other motor vehicles in traffic accident, initial encounter; Y93.89 Activity, other specified; Y92.410 Unspecified street and highway as the place of occurrence of the external cause; Y99.8 Other external cause status
CPT/HCPCS: 72100; 73130; 93005; 93010; 96372; 99283; J1100; J1885